=== PATIENT | male | born 1965 | race Caucasian/White ===

== ENCOUNTER → 2023-04-26 | Outpatient (CLI) | payer BC ==
[~2023-04-26] MED LIST: ASPIRIN E.C. 8181 MG PO; COZAAR 25MG25 MG/TAB PO; LIPITOR 80MG80 MG PO; OMEGA-3 1000 MG1 CAP PO; ZEBETA 5MG5 MG PO
== END ==
LOC: COL.RAD 12:23
DX: I35.0 Nonrheumatic aortic (valve) stenosis (principal); I51.7 Cardiomegaly; I77.819 Aortic ectasia, unspecified site; I25.10 Atherosclerotic heart disease of native coronary artery without angina pectoris
CPT/HCPCS: Q9967